=== PATIENT | female | born 1980 | race Caucasian/White ===

== ENCOUNTER 2017-10-01 12:57 | Outpatient (CLI) | payer OTHER ==
--- NOTE | 2017-10-01 15:57 | MRI ---
MRI LUMBAR SPINE WITHOUT CONTRAST: 10/01/17 Multiplanar and multisequential imaging lumbar spine obtained. HISTORY: Low back pain. Bilateral hip and leg pain. Lumbar vertebrae maintain height and alignment. There is a superior end plate deformity consistent with a small node at the T12 vertebra. This results in mild depression of the superior end plate. No significant edema is present at this location. This loss of disc space and loss of T2 signal at the L5-S1 disc. The other lumbar disc spaces maintai n normal height and alignment and exhibit normal T2 signal. At L5-S1, there is an annular fissure with a small central disc protrusion abutting the thecal sac ce ntrally. No central canal stenosis. No foraminal encroachment. This central protrusion appears to contact both traversing S1 nerve roots, possibly more prominently on the left. This may be exacerbated by upright position. No significant disc bulge or disc protrusion seen at any of the other lumbar levels. IMPRESSION: Annular fissure with small central disc protrusion at L5-S1 as described above. POS: [facility]
--- NOTE | 2017-10-01 16:07 | MRI ---
MRI THORACIC SPINE WITHOUT CONTRAST: Multiplanar, multisequential imaging of the left thoracic spine obtained. HISTORY: Thoracolumbar HNP. Thoracic pain. FINDINGS: There is a superior end plate deformity involving the T7 vertebra consistent with Schmorl node with s light superior end plate depression centrally at this level. There are both superior and inferior end plate deformities at T8. These deformities result in loss o f central height at T8. There is no edema present. There is also a superior end plate deformity of Schmorl's node seen at T12 vertebrae with minimal sup erior end plate depression. No vertebral body edema is seen at any of the thoracic levels. No evide nce of significant disk bulge or disk protrusion at any of the thoracic levels. The thoracic cord ap pears unremarkable. No evidence of central canal stenosis. IMPRESSION: 1. There are end plate deformities at several thoracic vertebrae as described above. The superior a nd inferior end plate deformities at T8 result in loss of central height at this vertebra as describe d above. 2. Moderate arthritis thoracic spine; otherwise, unremarkable. POS: [facility]
== END 2017-10-01 12:58 | disposition home or self-care (01) ==
LOC: SCSMRI 12:57
PROVIDERS: ATTEND Neurological Surgery
DX: M51.36 Other intervertebral disc degeneration, lumbar region (principal); M51.25 Other intervertebral disc displacement, thoracolumbar region; M46.94 Unspecified inflammatory spondylopathy, thoracic region; M51.27 Other intervertebral disc displacement, lumbosacral region
CPT/HCPCS: 72146; 72148

== ENCOUNTER 2018-12-10 12:04 | Outpatient (CLI) | payer OTHER ==
[2018-12-10 13:27] LABS: Hemoglobin 13.9 g/dL (12.0-16.0); Mean Corpuscular HGB CONC 32.8 g/dL (32.0-36.0); Mean Corpuscular Hemoglobin 32.6 pg (27.0-31.0); Mean Corpuscular Volume 99.3 fL (78.0-98.0); Mean Platelet Volume 8.5 fL (7.4-10.4); Platelet Count 118 thou/uL (130-400); RBC Distribution Width 11.8 % (11.5-14.5); Red Blood Cell (RBC) Count 4.27 mill/uL (4.20-5.40); White Blood Cell (WBC) Count 5.6 thou/uL (4.8-10.8)
[2018-12-10 14:12] LABS: Anion Gap 14 mmol/L (10-20); BUN (Urea Nitrogen) 9 mg/dL (7.0-18.7); Calc. Creatinine Clearance 0 mL/min (70-130); Calcium 8.7 mg/dL (7.8-10.44); Carbon Dioxide 26 mmol/L (22-29); Chloride 103 mmol/L (98-107); Estimated GFR-MDRD Greater than 90; Glucose 96 mg/dL (70-105); Potassium 3.2 mmol/L (3.5-5.1); Sodium 140 mmol/L (136-145)
--- NOTE | 2018-12-11 07:48 | EKG ---
Test Reason : Blood Pressure : / mmHG Vent. Rate : 073 BPM Atrial Rate : 073 BPM P-R Int : 138 ms QRS Dur : 082 ms QT Int : 420 ms P-R-T Axes : 059 058 046 degrees QTc Int : 462 ms Normal sinus rhythm Anterior infarct , age undetermined Abnormal ECG When compared with ECG of 29-OCT-2005 17:18, Vent. rate has decreased BY 40 BPM Nonspecific T wave abnormality no longer evident in Inferior leads Nonspecific T wave abnormality no longer evident in Lateral leads Confirmed by FLORENCE WHITLEY ([id number]) on 12/11/2018 7:48:27 AM Referred By: SUDHAKAR Confirmed By:FLORENCE WHITLEY
== END 2018-12-10 12:05 | disposition home or self-care (01) ==
LOC: LABBT 12:04
PROVIDERS: ATTEND Neurological Surgery
DX: Z01.818 Encounter for other preprocedural examination (principal); M54.16 Radiculopathy, lumbar region
CPT/HCPCS: 80048; 85027; 93005; 93010

== ENCOUNTER 2018-12-12 08:33 | Observation (INO) | payer OTHER ==
[~2018-12-12 08:33] MED LIST: Fentanyl 250 MCG/5 ML VIAL ONE; Sodium Chloride 0.9% 0 ML ONE; Sodium Chloride 0.9% 10 ML ONE; Thrombin 5000 UNITS/5 ML VIAL ONE
[2018-12-12] MEDS ORDERED: Clindamycin/D5W 900 mg/50 ml Premix Bag ONE (11:55)
[2018-12-12] MEDS ORDERED: Levofloxacin 500 mg/D5W 100 ml Premix Bag ONE (11:55)
[2018-12-12] MEDS ORDERED: Midazolam HCl 2 mg/2 ml Vial ONE (12:37)
[2018-12-12] MEDS ORDERED: Sodium Chloride 0.9% 10 ML ONE (13:00)
[2018-12-12] MEDS ORDERED: Fentanyl 250 MCG/5 ML VIAL ONE (13:05)
[2018-12-12] MEDS ORDERED: HYDROmorphone 2 MG/ML VIAL ONE (14:56)
[2018-12-12] MEDS ORDERED: Fentanyl 100 MCG/2 ML VIAL ONE ×3 (15:08→15:40)
[2018-12-12] MEDS ORDERED: Ketorolac Tromethamine 30 MG/ML VIAL ONE (15:45)
[2018-12-12] MEDS ORDERED: PROPOFOL 200 MG/20 ML VIAL ONE (15:48)
[2018-12-12] MEDS ORDERED: Ondansetron PF 4 MG/2 ML Vial ONE (15:48)
[2018-12-12] MEDS ORDERED: Dexamethasone 20 MG/5 ML VIAL ONE (15:48)
[2018-12-12] MEDS ORDERED: Rocuronium Bromide 10 MG/ML (10ML VIAL) ONE (15:48)
[2018-12-12] MEDS ORDERED: Lidocaine 1% PF 5 ML VIAL ONE (15:48)
[2018-12-12] MEDS ORDERED: Glycopyrrolate 0.2 MG/ML 5 ML SYRINGE ONE (15:48)
[2018-12-12] MEDS ORDERED: HYDROcodone/Acetaminophen 10/325 mg Tablet ONE (17:10)
[2018-12-12] MEDS ORDERED: tiZANidine HCl 4 MG TAB ONE (17:10)
[2018-12-12] MEDS ORDERED: TYLENOL #4 PATIENT'S HOME MEDICATION PO PRN (17:59)
[2018-12-12] MEDS ORDERED: Promethazine 25 MG TAB PO PRN (18:01)
[2018-12-12] MEDS ORDERED: Promethazine HCl 25 MG/ML VIAL IM PRN (18:01)
[2018-12-12] MEDS ORDERED: HYDROcodone/Acetaminophen 10/325 mg Tablet PO PRN (18:01)
[2018-12-12] MEDS ORDERED: diphenhydrAMINE 25 MG CAP PO PRN (18:01)
[2018-12-12] MEDS ORDERED: Milk Of Magnesia 30 ML UDCUP PO PRN (18:01)
[2018-12-12] MEDS ORDERED: Mag-Al 1200 mg/1200 mg/30 ML UDCUP PO PRN (18:01)
[2018-12-12] MEDS ORDERED: Morphine 4 MG/ML VIAL SLOW IVP PRN (18:01)
[2018-12-12] MEDS ORDERED: traMADol HCl 50 MG TAB PO PRN (18:01)
[2018-12-12] MEDS ORDERED: Promethazine HCl 12.5 MG SUPP PR PRN (18:01)
[2018-12-12] MEDS ORDERED: diphenhydrAMINE 50 MG/ML VIAL IVP PRN (18:01)
[2018-12-12] MEDS ORDERED: Bisacodyl 10 MG SUPP PR PRN (18:01)
[2018-12-12] MEDS ORDERED: Ondansetron PF 4 MG/2 ML Vial SLOW IVP PRN (18:01)
[2018-12-12] MEDS ORDERED: Morphine 2 MG/ML SYRINGE SLOW IVP PRN (18:15)
--- NOTE | 2018-12-12 20:50 | OP ---
DATE OF PROCEDURE: 12/12/2018 NET APPLICATION SUPPORT SPECIALIST: Jory Thomas PA-C. PROCEDURES PERFORMED: Left L5-S1 laminectomy, facetectomy, foraminotomy, interbody arthrodesis, intervertebral biomechanical device, local morselized autograft, demineralized bone matrix, posterolateral arthrodesis, pedicle screw instrumentation, L5-S1. DESCRIPTION OF PROCEDURE: The patient was brought to the operating room and intubated. She was rolled in a prone position on gel-filled chest rolls. An incision was made for the L5 and S1, and the level was confirmed by x-ray. We performed a left-sided laminectomy, facetectomy and foraminotomy completely decompressing the left L5 and left S1. The left L5-S1 disk was incised and debrided, and the bony endplates were decorticated for the purpose of arthrodesis. An appropriate-sized intervertebral biomechanical PEEK device was brought in the field. It was filled with demineralized bone matrix and local morselized autograft, and tapped in place securely at L5-S1. Next, pedicle screws were placed at left L5 and left S1 using lateral fluoroscopic guidance and the position was confirmed with rotational x-ray. A nathaniel was secured between the screws, connected by nuts, which were final tightened. The wound was then extensively irrigated, and maximum hemostasis was secured. A combination of demineralized bone matrix and local morselized autograft was laid over the lamina and posterolateral surfaces for the purpose of arthrodesis. Vancomycin powder was applied and the wound was then closed in anatomic layers. Job ID: [id number]
[2018-12-12] MEDS: Sodium Chloride 0.9% 1,000 ML IV SCH (21:18)
[2018-12-12] MEDS: Clindamycin/D5W 900 MG in Premix Bag 1 BAG IVPB SCH (21:21)
[2018-12-12] MEDS: clonazePAM 0.5 MG TAB PO SCH (21:23)
[2018-12-12] MEDS: Gabapentin 300 MG CAP PO SCH (21:23)
[2018-12-12] MEDS: Zolpidem Tartrate 5 MG TAB PO SCH (21:23)
[2018-12-13] MEDS: traMADol HCl 50 MG TAB PO PRN ×4 (00:01→18:15)
[2018-12-13 00:49] VITALS: BMI 25.7
[2018-12-13] MEDS: HYDROcodone/Acetaminophen 10/325 mg Tablet PO PRN ×4 (03:49→20:35)
[2018-12-13] MEDS: Clindamycin/D5W 900 MG in Premix Bag 1 BAG IVPB SCH (06:29)
[2018-12-13] MEDS: tiZANidine HCl 4 MG TAB PO PRN ×3 (06:47→18:15)
[2018-12-13] MEDS: Sodium Chloride 0.9% 1,000 ML IV SCH ×2 (07:51→22:55)
[2018-12-13] MEDS: clonazePAM 0.5 MG TAB PO SCH ×4 (08:39→20:31)
[2018-12-13] MEDS: Bupropion 150 MG XL TAB PO SCH (08:39)
[2018-12-13] MEDS: Gabapentin 300 MG CAP PO SCH ×3 (08:39→20:31)
[2018-12-13] MEDS ORDERED: Pantoprazole 40 MG VIAL IVP SCH (10:00)
[2018-12-13] MEDS: Zolpidem Tartrate 5 MG TAB PO SCH (20:31)
[2018-12-14] MEDS: traMADol HCl 50 MG TAB PO PRN ×3 (06:24→20:48)
[2018-12-14] MEDS: tiZANidine HCl 4 MG TAB PO PRN ×3 (06:24→20:48)
[2018-12-14] MEDS: Bupropion 150 MG XL TAB PO SCH (08:40)
[2018-12-14] MEDS: Gabapentin 300 MG CAP PO SCH ×3 (08:40→20:47)
[2018-12-14] MEDS: clonazePAM 0.5 MG TAB PO SCH ×4 (08:41→20:50)
[2018-12-14] MEDS: HYDROcodone/Acetaminophen 10/325 mg Tablet PO PRN ×2 (08:42→15:56)
[2018-12-14] MEDS: Sodium Chloride 0.9% 1,000 ML IV SCH (10:34)
[2018-12-14] MEDS ORDERED: Ketorolac Tromethamine 30 MG/ML VIAL IVP PRN (13:03)
[2018-12-14] MEDS: Zolpidem Tartrate 5 MG TAB PO SCH (22:00)
[2018-12-15] MEDS: Sodium Chloride 0.9% 1,000 ML IV SCH (04:25)
[2018-12-15] MEDS: tiZANidine HCl 4 MG TAB PO PRN ×2 (08:08→14:01)
[2018-12-15] MEDS: traMADol HCl 50 MG TAB PO PRN (08:08)
[2018-12-15] MEDS: Bupropion 150 MG XL TAB PO SCH (08:13)
[2018-12-15] MEDS: Gabapentin 300 MG CAP PO SCH ×2 (08:14→14:01)
[2018-12-15] MEDS: clonazePAM 0.5 MG TAB PO SCH ×2 (08:14→14:02)
[2018-12-15] MEDS: HYDROcodone/Acetaminophen 10/325 mg Tablet PO PRN ×2 (08:59→14:01)
--- NOTE | 2018-12-15 09:53 | PRG ---
DATE OF SERVICE: 12/13/2018 Ms. Liao is doing quite well one day postoperatively. Her back pain has been an issue and while we were working on pain control and increasing her ambulation, we will continue with inpatient care for now. We will reassess in the morning. Job ID: [id number]
[2018-12-15 11:18] VITALS: BP 113/78; TEMP 98.3
== END 2018-12-15 14:36 | disposition home or self-care (01) ==
LOC: CANPRESDC → SDC 08:33 → SURG B 18:24
PROVIDERS: ADMIT Neurological Surgery; ATTEND Neurological Surgery
PROC: 0SG00AJ Fusion of Lumbar Vertebral Joint with Interbody Fusion Device, Posterior Approach, Anterior Column, Open Approach (ICD-10-PCS; principal; 2018-12-12)
DX: M51.36 Other intervertebral disc degeneration, lumbar region (principal); Z88.0 Allergy status to penicillin; Z88.2 Allergy status to sulfonamides; Z79.2 Long term (current) use of antibiotics; Z79.899 Other long term (current) drug therapy
CPT/HCPCS: 76000; 96361; 96365; 96375; 96376; C1713; C1768; C9113; G0378; J1100; J1170; J1885; J1956; J2001; J2250; J2405; J2704; J3010; J3370; J3490

== ENCOUNTER 2019-12-10 07:42 | Day surgery (SDC) | payer OTHER ==
[2019-12-09 11:45] VITALS: BMI 24.3
--- NOTE | 2019-12-10 10:00 | CT ---
CT myelogram of the lumbar spine: 12/10/2019 COMPARISON: None HISTORY: 39-year-old female with bilateral lower extremity radiculopathy and history of prior lumbar spine surgery TECHNIQUE: Axial CT imaging at 2.5 mm intervals through the lumbar spine with intrathecal contrast me pio. Coronal and sagittal reformatted imaging obtained. FINDINGS: There is a left-sided L5 and S1 pedicle screw with a vertically oriented interlocking nathaniel. There is mild lucency adjacent to the S1 pedicle screw suggesting a mild degree of loosening. Intervertebral disc device at the L5-S1 level appears to be in proper position. There is no lumbar spine anterolisthesis or retrolisthesis appreciated. Conus medullaris terminates at T12-L1. At the T11-T12 level there is disc space narrowing with no significant central canal or neural forami nal stenosis. T12-L1: Mild disc space narrowing with no significant central canal or neural foraminal stenosis. L1-2: No central canal or neural foraminal stenosis L2-3: No central canal or neural foraminal stenosis L3-4: No central canal or neural foraminal stenosis L4-5: Mild bilateral facet hypertrophy and hypertrophy of the ligamentum flavum with no associated ce ntral canal or neural foraminal stenosis. L5-S1: The patient appears status post left-sided hemilaminectomy. Changes associated with left-sided facetectomy noted as well. There is soft tissue density in the left foraminal region with a probable degree of left neural foraminal stenosis. Ill-defined nature of this density suggests possib le postoperative scar. No significant central canal or right neural foraminal stenosis. No acute fracture or dislocation. No worrisome lytic or blastic bone lesion. Review of the nonosseous structures demonstrates diffuse hepatic hypodensities suggesting steatosis. Clips in the right upper quadrant suggest prior cholecystectomy. IMPRESSION: Postoperative and degenerative change within the lumbar spine as described above.
--- NOTE | 2019-12-10 14:43 | RAD ---
Lumbar spine myelogram: 12/10/2019 HISTORY: Bilateral lower extremity radiculopathy FINDINGS: [employer]ified [employer] imaging demonstrates left-sided pedicle screws at L5 and S1. Lucency adjacent to the S1 screws suggesting mild degree of loosening. Intervertebral disc device present at the L5-S1 level. No anterolisthesis or retrolisthesis. No acute osseous abnormality. Informed consent obtained prior to the procedure. Lower lumbar spine prepped and draped in normal ze rile fashion and anesthetized with 1% buffered lidocaine. With intermittent fluoroscopic guidance, a 22-gauge spinal needle is advanced into the thecal sac at the L4-5 level and removal of the stylet yields clear cerebrospinal fluid. Subsequently, approximately 10 cc of iodinated contrast media is injected, outlining nerve roots of the cauda equin a and filling the thecal sac. Needle was removed. Patient tolerated the procedure well. IMPRESSION: Successful lumbar spine myelogram as above.
[2019-12-10] MEDS ORDERED: Iopamidol-M 200 41% 20 ML VIAL ONE (14:52)
== END 2019-12-10 10:30 | disposition home or self-care (01) ==
LOC: RAD 07:42 → EDSTATUS 08:00 → RAD 10:30
PROVIDERS: ATTEND Neurological Surgery
PROC: B02B1ZZ Computerized Tomography (CT Scan) of Spinal Cord using Low Osmolar Contrast (ICD-10-PCS; principal; 2019-12-10)
DX: M54.16 Radiculopathy, lumbar region (principal); F41.9 Anxiety disorder, unspecified; F43.10 Post-traumatic stress disorder, unspecified; F17.200 Nicotine dependence, unspecified, uncomplicated; Z88.0 Allergy status to penicillin; Z88.2 Allergy status to sulfonamides
CPT/HCPCS: 62304; 72132; Q9966